=== PATIENT | male | born 1990 | race Caucasian/White ===

== ENCOUNTER 2017-01-15 22:46 | Emergency (ER) | payer SELFPAY ==
[~2017-01-15] VITALS: Ht 171.4 cm; Wt 66.5 kg
[2017-01-15 22:46] VITALS: Ht 171.4 cm; Wt 66.5 kg
[~2017-01-15 22:46] MED LIST: AMOX500C2 PO; HYDR-4246 PO
--- OUTSIDE RECORDS SUMMARY | 2017-01-15 22:50 | XMS REPORT | Continuity of Care Document ---
Author Author [facility] Organization [facility] Address Unknown Phone Unavailable Support Name Relationship Address Phone JONATHON CRYSTAL MD Caregiver [facility] [address] [place] [address] Unavailable MATTIE CARIAS MD Caregiver [address] [place] [address] MAGUE PRIETO Next Of Kin [address] [place] [address] Insurance Providers Payer Name Policy Number Subscriber Name Relationship Self Pay Wili Prieto 20 Self Advance Directives Directive Response Recorded Date/Time Advanced Directives Type None 05/25/14 10:10pm Problems Medical Problems Problem Onset Date Status LEFT GREAT TOE NAIL AVULSION Unknown Active Puncture wound of foot, left Unknown Active Puncture wound of foot, left Unknown Active Dental infection Unknown Active Dental abscess Unknown Active Dental abscess Unknown Active Medications Medication Dose Route Sig Days/Qty Instructions Order Date Discontinued Date Status [None] 08/15/09 04/08/11 Discontinued Miscellaneous Information 05/07/14 Active Amoxicillin 500 Mg PO THREE TIMES A DAY 10 Days 05/25/14 Active Hydrocodone/Acetaminophen 1-2 Tab PO Every 6 Hours PRN PAIN 20 Qty 05/01 Active Social History Social History Problem Response Recorded Date/Time Smoking Status Current every day smoker 05/25/2014 10:15pm When did patient START smoking? AROUND AGE 16 05/25/2014 10:15pm Hx Substance Use No 05/25/2014 10:15pm Hx Alcohol Use No 05/25/2014 10:15pm Hospital Discharge Instructions No hospital discharge instructions. Plan of Care No plan of care. Functional Status Query Response Date Recorded Physical Hygiene Self May 25, 2014 10:15pm Disabilities None May 25, 2014 10:15pm Devices Used None May 25, 2014 10:15pm Dressing Self May 25, 2014 10:15pm Ambulation Self May 25, 2014 10:15pm Diet Self May 25, 2014 10:15pm Mental Status Alert May 25, 2014 10:41pm Disabilities None May 25, 2014 10:15pm Devices Used None May 25, 2014 10:15pm Physical Hygiene Self May 25, 2014 10:15pm Dressing Self May 25, 2014 10:15pm Ambulation Self May 25, 2014 10:15pm Diet Self May 25, 2014 10:15pm Allergies, Adverse Reactions, Alerts Allergen Type Severity Reaction Status Last Updated No Known Allergies Active 05/26/14 Immunizations Name Given Type Hx Influenza Vaccination No Historical Hx Pneumococcal Vaccination No Historical Hx Tetanus, Diptheria, Pertussis Y 05/07/14 Historical Hx Influenza Vaccination No Historical Hx Tetanus Diptheria N UNKNOWN Historical Hx Tetanus, Diptheria, Pertussis Y 05/07/14 Historical Hx Tetanus Toxoid Vaccination No Historical Vital Signs Acute Vital Signs Vital Response Date/Time Temperature (Fahrenheit) 97.6 deg F (96.8 - 99.1) Temperature (Calculated Celsius) 36.26240 degrees C (36.0 - 37.3) Pulse Rate (adult) 63 bpm (60 - 100) Respiratory Rate 18 breaths/min (10 - 20) O2 Sat by Pulse Oximetry 99 % (90 - 100) Blood Pressure 121/61 mm Hg Height 5 ft 8 in Weight 136 lb Body Mass Index 20.0 kg/m^2 Results Test Source Date Result Interp. Ref. Range Comments Alanine Aminotransferase (ALT/SGPT) September 17, 2011 2:10pm 23 U/L N 21 -72 Albumin September 17, 2011 2:10pm 5.2 G/DL H 3.5-5.0 Albumin/Globulin Ratio September 17, 2011 2:10pm 1.6 RATIO N 1.1-2.2 Alkaline Phosphatase September 17, 2011 2:10pm 67 U/L N 38-126 Anion Gap September 17, 2011 2:10pm 14 MEQ/L N 5-15 Aspartate Amino Transf (AST/SGOT) September 17, 2011 2:10pm 20 U/L N 17- 59 BUN/Creatinine Ratio September 17, 2011 2:10pm 20 RATIO N 6-26 Basophils # (Auto) September 17, 2011 2:10pm 0.1 T/MM3 N 0-0.2 Basophils (%) (Auto) September 17, 2011 2:10pm 1.4 % N 0-2 Blood Urea Nitrogen September 17, 2011 2:10pm 18.0 MG/DL N 9-20 Calcium Level September 17, 2011 2:10pm 10.2 MG/DL N 8.4-10.2 Calculated Osmolality September 17, 2011 2:10pm 280 MOSM/KG N 261-280 Carbon Dioxide Level September 17, 2011 2:10pm 29 MEQ/L N 22-30 Chloride Level September 17, 2011 2:10pm 102 MEQ/L N 98-107 Creatinine September 17, 2011 2:10pm 0.9 MG/DL N 0.8-1.5 Eosinophils # (Auto) September 17, 2011 2:10pm 0.2 T/MM3 N 0-0.5 Eosinophils (%) (Auto) September 17, 2011 2:10pm 1.8 % N 0-4 Globulin September 17, 2011 2:10pm 3.2 G/DL N 2.4-3.6 Glucose Level September 17, 2011 2:10pm 78 MG/DL N 75-110 Hematocrit September 17, 2011 2:10pm 44.9 % N 41-53 Hemoglobin September 17, 2011 2:10pm 15.5 GM/DL N 13.5-17.5 Lymphocytes # (Auto) September 17, 2011 2:10pm 2.9 T/MM3 N 1-4.8 Lymphocytes (%) (Auto) September 17, 2011 2:10pm 34.2 % N 23-45 Mean Corpuscular Hemoglobin September 17, 2011 2:10pm 30.5 UUG N 26-34 Mean Corpuscular Hemoglobin Concent September 17, 2011 2:10pm 34.5 GM/DL N 31-37 Mean Corpuscular Volume September 17, 2011 2:10pm 88.4 UM3 N 80-100 Mean Platelet Volume September 17, 2011 2:10pm 11.8 UM3 N 9.4-12.4 Monocytes # (Auto) September 17, 2011 2:10pm 0.5 T/MM3 N 0-0.8 Monocytes (%) (Auto) September 17, 2011 2:10pm 6.4 % N 0-9.0 Neutrophils # (Auto) September 17, 2011 2:10pm 4.7 T/MM3 N 1.8-7.7 Neutrophils (%) (Auto) September 17, 2011 2:10pm 56.1 % N 33-66 Platelet Count September 17, 2011 2:10pm 229 T/MM3 N 130-400 Potassium Level September 17, 2011 2:10pm 4.4 MEQ/L N 3.6-5 RDW Standard Deviation September 17, 2011 2:10pm 40.0 FL N 36.9-50.2 Red Blood Count September 17, 2011 2:10pm 5.08 M/MM3 N 4.50-5.90 Sodium Level September 17, 2011 2:10pm 145 MEQ/L H 134-144 Thyroid Stimulating Hormone (TSH) September 17, 2011 2:10pm 3.87 MIU/L N 0.47-4.68 Total Bilirubin September 17, 2011 2:10pm 0.90 MG/DL N 0.20-1.30 Total Protein September 17, 2011 2:10pm 8.4 G/DL H 6.3-8.2 Urine Amphetamines Screen March 20, 2011 10:45pm Negative NG/ML - Urine Barbiturates Screen March 20, 2011 10:45pm Negative NG/ML - Urine Benzodiazepines Screen March 20, 2011 10:45pm Negative NG/ML - Urine Cocaine Screen March 20, 2011 10:45pm Negative NG/ML - Urine Drug Screen Confirmation March 20, 2011 11:19pm Sent out - Urine Drug Screen Other September 05, 2013 8:51pm Sent out - Urine Methamphetamines Screen March 20, 2011 10:45pm Negative NG/ML - Urine Opiates Screen March 20, 2011 10:45pm Negative NG/ML - Urine Phencyclidine Screen March 20, 2011 10:45pm Negative NG/ML - Urine Tricyclic Antidepressants March 20, 2011 10:45pm Negative NG/ML - White Blood Count September 17, 2011 2:10pm 8.4 T/MM3 N 4.5-11.0 Lab Scanned Report September 07, 2013 10:55am [facility] [id number] - Urine Methadone Screen March 20, 2011 10:45pm Negative NG/ML - Urine Cannabinoids Screen March 20, 2011 10:45pm Positive NG/ML - Glomerular Filtration Rate Calc September 17, 2011 2:10pm 109 - Immature Granulocyte # (Auto) September 17, 2011 2:10pm 0.01 T/MM3 N 0.00 -0.03 Immature Granulocyte % (Auto) September 17, 2011 2:10pm 0.1 % N 0.0-0.5 Urine Acetaminophen Screen March 20, 2011 10:45pm Positive NG/ML - Procedures Procedure Status Date Provider(s) IMMUNIZATION ADMIN completed 05/07/14 Encounters Encounter Location Date/Time Departed Emergency Room [facility] 05/25/14 9:49pm Departed Emergency Room [facility] 05/25/14 2:26am Departed Emergency Room [facility] 05/07/14 5:35pm Recent Diagnosis
--- OUTSIDE RECORDS SUMMARY | 2017-01-15 22:50 | XMS REPORT | Continuity of Care Document ---
Author Author [facility] Organization [facility] Address Unknown Phone Unavailable Support Name Relationship Address Phone JONATHON CRYSTAL MD Caregiver [address] [place] [address] Unavailable ELVIN DICK Next Of Kin [address] [place] [address] Insurance Providers Guarantor Nando Dick Address [address] [place] [address] Email [email or web address] Payer Self Pay Subscriber's Name Nando Dick Relationship 20 Self Chief Complaint and Reason for Visit Chief Complaint Toothache Reason for Visit [id number] Problems Active Problems Medical Problem Onset Date Status Dental abscess Unknown Acute Dental abscess Unknown Acute Dental abscess Unknown Acute Dental infection Unknown Acute Dental infection Unknown Acute Dental infection Unknown Acute LEFT GREAT TOE NAIL AVULSION Unknown Acute Lymphadenopathy of left cervical region Unknown Acute Pain due to dental caries Unknown Acute Puncture wound of foot, left Unknown Acute Puncture wound of foot, left Unknown Acute Tooth fracture Unknown Acute Tooth fracture Unknown Acute Past Problems Medical Problem Onset Date Dental decay Unknown Medications Current Home Medications Medication Dose Units Route Directions Days Qty Instructions Start Date Amoxicillin 500 Mg Capsule 1 Cap Oral Every 8 Hours 30 Capsule Amoxicillin 500 Mg Capsule 1 Cap Oral Three Times A Day 30 Capsule 09/21/16 Hydrocodone/Acetaminophen ([place] 5-325 Tablet) 1 Each Tablet 1-2 Tab Oral Every 6 Hours as needed for Pain 20 Tablet 05/25/14 Hydrocodone/Acetaminophen ([place] 5-325 Tablet) 5-325 Tablet 1 Tab Oral Four Times Daily as needed for Pain 20 09/21/16 Past Home Medications Medication Directions Ordered Status None , 08/15/09 Discontinued Social History Social History Problem Response Recorded Date/Time Onset Date Status Hx Substance Use No 09/21/2016 12:20am Not Applicable Not Applicable Hx Alcohol Use Y RARE 09/21/2016 12:20am Not Applicable Not Applicable Tobacco Usage smoke 05/07/2014 5:58pm Not Applicable Not Applicable Query Response Start Date Stop Date Smoking Status Current every day smoker Hospital Discharge Instructions No hospital discharge instructions. Plan of Care Discharge Date 09/21/16 1:27am Disposition 01 DISCHARGED HOME, SELF-CARE Condition at Discharge Improved Instructions/Education Provided Tooth Decay DI for Dental Pain Forms Provided Return to Work/School Permit Prescriptions See Medication Section Additional Instructions/Education Amoxicillin 500 mg 3 times daily for 10 days Continue ibuprofen 600 mg 4 times daily for baseline pain control [place] 5 mg one tablet 4 times daily as needed for severe pain Search out a dentist in [place] and establish care and ongoing dental care and assistance with anxiety due to procedures Care Plan and Goals Physician Care Plan Problem: Severe dental decay with dental infection Goal: Follow up with primary care provider Instructions: Take medications and follow care plan as discussed/written Amoxicillin 500 mg 3 times daily for 10 days Continue ibuprofen 600 mg 4 times daily for baseline pain control [place] 5 mg one tablet 4 times daily as needed for severe pain Search out a dentist in [place] and establish care and ongoing dental care and assistance with anxiety due to procedures Functional Status No functional status results. Allergies, Adverse Reactions, Alerts No known allergies. Immunizations Query Response on File Recorded Date/Time Hx Influenza Vaccination No 07/11/14 3:10am Hx Pneumococcal Vaccination No 07/11/14 3:10am Hx Tetanus, Diptheria, Pertussis Y 05/07/14 07/11/14 3:10am Hx Influenza Vaccination No 07/11/14 3:10am Hx Tetanus Diptheria N UNKNOWN 07/11/14 3:10am Hx Tetanus, Diptheria, Pertussis Y 05/07/14 07/11/14 3:10am Hx Tetanus Toxoid Vaccination No 08/15/09 8:47pm Influenza Vaccine Hx NOT YET REC'D 09/21/16 12:20am Vital Signs Acute Vital Signs Vital Response Date/Time Temperature (Fahrenheit) 98.5 deg F (96.8 - 99.1) 09/21/2016 1:27am Temperature (Calculated Celsius) 36.35484 degrees C (36.0 - 37.3) 09/21/2016 1:27am Pulse Rate (adult) 74 bpm (60 - 100) 09/21/2016 1:27am Respiratory Rate 16 breaths/min (10 - 20) 09/21/2016 1:27am O2 Sat by Pulse Oximetry 100 % (90 - 100) 09/21/2016 1:27am Blood Pressure 114/80 mm Hg 09/21/2016 1:27am Height (Feet) 5 feet 09/21/2016 12:13am Height (Inches) 7.00 inches 09/21/2016 12:13am Weight (Kilograms) 66.500 kg 09/21/2016 12:13am Body Mass Index (BMI) 22.0 09/21/2016 12:13am Results No known relevant diagnostic tests, laboratory data and/or discharge summary. Procedures No known history of procedures. Encounters Encounter Location Arrival/Admit Date Discharge/Depart Date Attending Provider Departed Emergency Room [facility] 09/21/16 12:01am 09/21/16 1: 27am JONATHON CRYSTAL MD Recent Diagnosis
--- OUTSIDE RECORDS SUMMARY | 2017-01-15 22:50 | XMS REPORT | Continuity of Care Document ---
Author Author [facility] Organization [facility] Address Unknown Phone Unavailable Support Name Relationship Address Phone JONATHON CRYSTAL MD Caregiver [facility] [address] [place] [address] Unavailable MATTIE CARIAS MD Caregiver [address] [place] [address] MAGUE PRIETO Next Of Kin [address] [place] [address] Insurance Providers Payer Name Policy Number Subscriber Name Relationship Self Pay Wili Prieto 20 Self Advance Directives Directive Response Recorded Date/Time Advanced Directives Type None 05/26/14 8:10pm Problems Medical Problems Problem Onset Date Status LEFT GREAT TOE NAIL AVULSION Unknown Active Puncture wound of foot, left Unknown Active Puncture wound of foot, left Unknown Active Dental infection Unknown Active Dental abscess Unknown Active Dental abscess Unknown Active Lymphadenopathy of left cervical region Unknown Active Dental abscess Unknown Active Dental infection Unknown Active Medications Medication Dose Route Sig Days/Qty Instructions Order Date Discontinued Date Status [None] 08/15/09 04/08/11 Discontinued Miscellaneous Information 05/07/14 Active Amoxicillin 500 Mg PO THREE TIMES A DAY 10 Days 05/25/14 Active Hydrocodone/Acetaminophen 1-2 Tab PO Every 6 Hours PRN PAIN 20 Qty 05/01 Active Social History Social History Problem Response Recorded Date/Time Smoking Status Current every day smoker 05/26/2014 8:34pm When did patient START smoking? 16 YRS OLD 05/26/2014 8:34pm Hx Substance Use No 05/26/2014 8:34pm Hx Alcohol Use No 05/26/2014 8:34pm Hospital Discharge Instructions No hospital discharge instructions. Plan of Care No plan of care. Functional Status Query Response Date Recorded Physical Hygiene Self May 26, 2014 8:34pm Disabilities None May 26, 2014 8:34pm Devices Used None May 26, 2014 8:34pm Dressing Self May 26, 2014 8:34pm Ambulation Self May 26, 2014 8:34pm Diet Self May 26, 2014 8:34pm Mental Status Alert Oriented May 26, 2014 8:34pm Disabilities None May 26, 2014 8:34pm Devices Used None May 26, 2014 8:34pm Physical Hygiene Self May 26, 2014 8:34pm Dressing Self May 26, 2014 8:34pm Ambulation Self May 26, 2014 8:34pm Diet Self May 26, 2014 8:34pm Allergies, Adverse Reactions, Alerts Allergen Type Severity [...] Vital Signs Vital Response Date/Time Temperature (Fahrenheit) 98.4 deg F (96.8 - 99.1) Temperature (Calculated Celsius) 36.99484 degrees C (36.0 - 37.3) Pulse Rate (adult) 86 bpm (60 - 100) Respiratory Rate 20 breaths/min (10 - 20) O2 Sat by Pulse Oximetry 99 % (90 - 100) Blood Pressure 132/69 mm Hg Height 5 ft 8 in Weight 135 lb Body Mass Index 20.0 kg/m^2 Results [...] Report September 07, 2013 10:55am [facility] [id number] - Urine Methadone Screen March 20, 2011 [...] Encounters Encounter Location Date/Time Departed Emergency Room [facility] 05/26/14 8:01pm Departed Emergency Room [facility] 05/25/14 9:49pm Departed Emergency Room [facility] 05/25/14 2:26am Departed Emergency Room [facility] 05/07/14 5:35pm Recent Diagnosis
--- OUTSIDE RECORDS SUMMARY | 2017-01-15 22:50 | XMS REPORT | Continuity of Care Document ---
Author Author [facility] Organization [facility] Address Unknown Phone Unavailable Support Name Relationship Address Phone MATTIE CARIAS MD Caregiver [address] [place] [address] ALYCIA POWERS MD Caregiver [address] [place] [address] [address] [place] [id number] MAGUE PRIETO Next Of Kin [address] [place] [address] Insurance Providers Payer Name Policy Number Subscriber Name Relationship Self Pay Nando Prieto 20 Self Advance Directives Directive Response Recorded Date/Time Advanced Directives Type None 05/25/14 2:33am Problems Medical Problems Problem Onset Date Status LEFT GREAT TOE NAIL AVULSION Unknown Active Puncture wound of foot, left Unknown Active Puncture wound of foot, left Unknown Active Dental infection Unknown Active Medications Medication Dose Route Sig Days/Qty Instructions Order Date Discontinued Date Status [None] 08/15/09 04/08/11 Discontinued Miscellaneous Information 05/07/14 Active Ciprofloxacin Hcl 500 Mg PO TWICE A DAY For puncture wound foot 14 Days 05/07/14 Active Amoxicillin 500 Mg PO THREE TIMES A DAY 10 Days 05/25/14 Active Hydrocodone/Acetaminophen 1-2 Tab PO Every 6 Hours PRN PAIN 20 Qty 05/01 Active Social History Social History Problem Response Recorded Date/Time Smoking Status Current every day smoker 05/25/2014 2:43am When did patient START smoking? started at approx. age 16 05/25/2014 2:43am Chewing Tobacco Status No 05/25/2014 2:43am Hx Substance Use No 05/25/2014 2:43am Hx Alcohol Use No 05/25/2014 2:43am Hospital Discharge Instructions No hospital discharge instructions. Plan of Care No plan of care. Functional Status Query Response Date Recorded Physical Hygiene Self May 25, 2014 2:43am Disabilities None May 25, 2014 2:43am Devices Used None May 25, 2014 2:43am Dressing Self May 25, 2014 2:43am Ambulation Self May 25, 2014 2:43am Diet Self May 25, 2014 2:43am Mental Status Alert May 25, 2014 2:47am Disabilities None May 25, 2014 2:43am Devices Used None May 25, 2014 2:43am Physical Hygiene Self May 25, 2014 2:43am Dressing Self May 25, 2014 2:43am Ambulation Self May 25, 2014 2:43am Diet Self May 25, 2014 2:43am Allergies, Adverse Reactions, Alerts Allergen Type Severity Reaction Status Last Updated No Known Allergies Active 05/25/14 Immunizations Name Given Type Hx Influenza Vaccination No Historical Hx Pneumococcal Vaccination No Historical Hx Tetanus, Diptheria, Pertussis Y 05/07/14 Historical Hx Influenza Vaccination No Historical Hx Tetanus Diptheria N UNKNOWN Historical Hx Tetanus, Diptheria, Pertussis Y 05/07/14 Historical Hx Tetanus Toxoid Vaccination No Historical Vital Signs Acute Vital Signs Vital Response Date/Time Temperature (Fahrenheit) 97.2 deg F (96.8 - 99.1) Temperature (Calculated Celsius) 36.41707 degrees C (36.0 - 37.3) Pulse Rate (adult) 63 bpm (60 - 100) Respiratory Rate 16 breaths/min (10 - 20) O2 Sat by Pulse Oximetry 100 % (90 - 100) Blood Pressure 135/79 mm Hg Height 5 ft 8 in [...] Report September 07, 2013 10:55am [facility] [id number] - Urine Methadone Screen March 20, 2011 [...] ADMIN completed 05/07/14 Encounters Encounter Location Date/Time Registered Emergency Room [facility] 05/25/14 2:26am Departed Emergency Room [facility] 05/07/14 5:35pm Recent Diagnosis
--- OUTSIDE RECORDS SUMMARY | 2017-01-15 22:50 | XMS REPORT | Continuity of Care Document ---
Author Author [facility] Organization [facility] Address Unknown Phone Unavailable Support Name Relationship Address Phone SILVIODAPHNE Caregiver [facility] [address] [place], [place] [id number] RICHARD ARZATE MD Caregiver Unknown Unavailable MATTIE CARIAS MD Caregiver [address] [place], [place] [id number] MAGUE PRIETO Next Of Kin [address] [place] [id number] Insurance Providers Payer Name Policy Number Subscriber Name Relationship Self Pay Nando Prieto 20 Self Problems Medical Problems Problem Onset Date Status LEFT GREAT TOE NAIL AVULSION Unknown Active Puncture wound of foot, left Unknown Active Puncture wound of foot, left Unknown Active Medications Medication Dose Route Sig Days/Qty Instructions Order Date Discontinued Date Status [None] 08/15/09 04/08/11 Discontinued Miscellaneous Information 05/07/14 Active Ciprofloxacin Hcl 500 Mg PO TWICE A DAY For puncture wound foot 14 Days 05/07/14 Active Social History Social History Problem Response Recorded Date/Time Smoking Status Current every day smoker 05/07/2014 5:41pm Chewing Tobacco Status No 05/07/2014 5:41pm Hx Substance Use No 05/07/2014 5:41pm Hospital Discharge Instructions No hospital discharge instructions. Plan of Care No plan of care. Functional Status Query Response Date Recorded Physical Hygiene Self May 07, 2014 5:41pm Disabilities None May 07, 2014 5:41pm Devices Used None May 07, 2014 5:41pm Dressing Self May 07, 2014 5:41pm Ambulation Self May 07, 2014 5:41pm Diet Self May 07, 2014 5:41pm Mental Status Alert Oriented May 07, 2014 5:41pm Disabilities None May 07, 2014 5:41pm Devices Used None May 07, 2014 5:41pm Physical Hygiene Self May 07, 2014 5:41pm Dressing Self May 07, 2014 5:41pm Ambulation Self May 07, 2014 5:41pm Diet Self May 07, 2014 5:41pm Allergies, Adverse Reactions, Alerts Allergen Type Severity Reaction Status Last Updated No Known Allergies Active 05/07/14 Immunizations Name Given Type Hx Tetanus, Diptheria, Pertussis Y 05/07/14 Historical Hx Tetanus Diptheria N UNKNOWN Historical Hx Tetanus, Diptheria, Pertussis Y 05/07/14 Historical Hx Tetanus Toxoid Vaccination No Historical Tdap 05/07/14 Administered Vital Signs Acute Vital Signs Vital Response Date/Time Temperature (Fahrenheit) 98.5 deg F (96.8 - 99.1) Temperature (Calculated Celsius) 36.64261 degrees C (36.0 - 37.3) Pulse Rate (adult) 84 bpm (60 - 100) Respiratory Rate 18 breaths/min (10 - 20) O2 Sat by Pulse Oximetry 99 % (90 - 100) Blood Pressure 131/69 mm Hg Height 5 ft 9 in Weight 137 lb Body Mass Index 20.0 kg/m^2 Results [...] Report September 07, 2013 10:55am [facility] [id number] - Urine Methadone Screen March 20, 2011 [...] 20, 2011 10:45pm Positive NG/ML - Procedures No known history of procedures. Encounters Encounter Location Date/Time Departed Emergency Room [facility] 05/07/14 5:35pm Recent Diagnosis
--- OUTSIDE RECORDS SUMMARY | 2017-01-15 22:50 | XMS REPORT | Continuity of Care Document ---
Author Author [facility] Organization [facility] Address Unknown Phone Unavailable Support Name Relationship Address Phone HEIDY LARSEN MD Caregiver [address] [place] [address] [address] [place] [address] MATTIE CARIAS MD Caregiver [address] [place] [address] MAGUE PRIETO Next Of Kin [address] [place] [phone] Insurance Providers Payer Name Policy Number Subscriber [...] abscess Unknown Active Dental infection Unknown Active Tooth fracture Unknown Active Dental infection Unknown Active Medications Medication Dose Route Sig Days/Qty Instructions Order Date Discontinued Date Status [None] 08/15/09 04/08/11 Discontinued Miscellaneous Information 05/07/14 Active Amoxicillin 500 Mg PO THREE TIMES A DAY 10 Days 05/25/14 Active Hydrocodone/Acetaminophen 1-2 Tab PO Every 6 Hours PRN PAIN 20 Qty 05/01 Active Hydrocodone/Acetaminophen 1-2 Tab PO Q6H/0300,0900,1500,2100 PRN dental pain 20 Qty 05/29/14 Active Social History Social History Problem Response Recorded Date/Time Smoking Status Current every day smoker 05/29/2014 11:08am Hx Substance Use No 05/29/2014 11:08am Hx Alcohol Use No 05/29/2014 11:08am Hospital Discharge Instructions No hospital discharge instructions. Plan of Care No plan of care. Functional Status Query Response Date Recorded Physical Hygiene Self May 29, 2014 11:08am Disabilities None May 29, 2014 11:08am Devices Used None May 29, 2014 11:08am Dressing Self May 29, 2014 11:08am Ambulation Self May 29, 2014 11:08am Diet Self May 29, 2014 11:08am Mental Status Alert May 29, 2014 11:38am Disabilities None May 29, 2014 11:08am Devices Used None May 29, 2014 11:08am Physical Hygiene Self May 29, 2014 11:08am Dressing Self May 29, 2014 11:08am Ambulation Self May 29, 2014 11:08am Diet Self May 29, 2014 11:08am Allergies, Adverse Reactions, Alerts Allergen Type Severity [...] Vital Signs Vital Response Date/Time Temperature (Fahrenheit) 97.4 deg F (96.8 - 99.1) Temperature (Calculated Celsius) 36.22164 degrees C (36.0 - 37.3) Pulse Rate (adult) 72 bpm (60 - 100) Respiratory Rate 22 breaths/min (10 - 20) O2 Sat by Pulse Oximetry 99 % (90 - 100) Blood Pressure 122/73 mm Hg Height 5 ft 9 in Weight 122 lb Body Mass Index 18.0 kg/m^2 Results Test Source Date Result Interp. [...] Report September 07, 2013 10:55am [facility] [id number] - Urine Methadone Screen March 20, 2011 [...] Encounters Encounter Location Date/Time Departed Emergency Room [facility] 05/29/14 11:01am Departed Emergency Room [facility] 05/26/14 8:01pm Departed Emergency Room [facility] 05/25/14 9:49pm Departed Emergency Room [facility] 05/25/14 2:26am Departed Emergency Room [facility] 05/07/14 5:35pm Recent Diagnosis
--- OUTSIDE RECORDS SUMMARY | 2017-01-15 22:51 | XMS REPORT | Continuity of Care Document ---
Author Author [facility] Organization [facility] Address Unknown Phone Unavailable Support Name Relationship Address Phone JONATHON CRYSTAL MD Caregiver [address] [place] [address] Unavailable MAGUE DICK Next Of Kin [address] [place] [address] Insurance Providers Payer Name Policy Number Subscriber Name Relationship Self Pay Nando Dick 20 Self Problems Medical Problems Problem Onset [...] fracture Unknown Active Dental infection Unknown Active Tooth fracture Unknown Active Pain due to dental caries Unknown Active Medications Medication Dose Route Sig Days/Qty Instructions Order Date Discontinued Date Status [None] 08/15/09 04/08/11 Discontinued Hydrocodone/Acetaminophen 1-2 Tab PO Every 6 Hours PRN PAIN 20 Qty 05/01 Active Amoxicillin 1 Cap PO Every 8 Hours 30 Qty 07/11/14 Active Social History Social History Problem Response Recorded Date/Time Smoking Status Current every day smoker 07/11/2014 3:10am Chewing Tobacco Status No 07/11/2014 3:10am Hx Substance Use No 07/11/2014 3:10am Hx Alcohol Use Y RARE 07/11/2014 3:10am Hospital Discharge Instructions No hospital discharge instructions. Plan of Care No plan of care. Functional Status Query Response Date Recorded Physical Hygiene Self July 11, 2014 3:10am Disabilities None July 11, 2014 3:10am Devices Used None July 11, 2014 3:10am Dressing Self July 11, 2014 3:10am Ambulation Self July 11, 2014 3:10am Diet Self July 11, 2014 3:10am Mental Status Alert Oriented July 11, 2014 3:10am Disabilities None July 11, 2014 3:10am Devices Used None July 11, 2014 3:10am Physical Hygiene Self July 11, 2014 3:10am Dressing Self July 11, 2014 3:10am Ambulation Self July 11, 2014 3:10am Diet Self July 11, 2014 3:10am Allergies, Adverse Reactions, Alerts Allergen Type Severity Reaction Status Last Updated No Known Allergies Active 07/11/14 Immunizations Name Given Type Hx Influenza Vaccination [...] F (96.8 - 99.1) Temperature (Calculated Celsius) 36.78522 degrees C (36.0 - 37.3) Pulse Rate (adult) 83 bpm (60 - 100) Respiratory Rate 16 breaths/min (10 - 20) O2 Sat by Pulse Oximetry 100 % (90 - 100) Blood Pressure 133/75 mm Hg Blood Pressure 133/75 mm Hg Height (Feet) 5 feet Height (Inches) 9.00 inches Weight (Kilograms) 60.8 kg Body Mass Index (BMI) 19.0 Results Test Source Date Result Interp. Ref. [...] Report September 07, 2013 10:55am [facility] [id number] - Urine Methadone Screen March 20, 2011 [...] Encounters Encounter Location Date/Time Departed Emergency Room [facility] 07/11/14 2:57am Departed Emergency Room [facility] 05/29/14 11:01am Departed Emergency Room [facility] 05/26/14 8:01pm Departed Emergency Room [facility] 05/25/14 9:49pm Departed Emergency Room [facility] 05/25/14 2:26am Departed Emergency Room [facility] 05/07/14 5:35pm Recent Diagnosis
--- OUTSIDE RECORDS SUMMARY | 2017-01-15 23:00 | XMS REPORT | Continuity of Care Document ---
Author Author [facility] Organization [facility] Address Unknown Phone Unavailable Support Name Relationship Address Phone JONATHON CRYSTAL MD Caregiver [facility] [address] [place] [address] Unavailable MATTIE CARISA MD Caregiver [address] [place] [address] MAGUE PRIETO Next Of Kin [address] [place] [address] Insurance Providers Payer Name Policy Number Subscriber [...] F (96.8 - 99.1) Temperature (Calculated Celsius) 36.00290 degrees C (36.0 - 37.3) Pulse Rate [...] Report September 07, 2013 10:55am [facility] [id number] - Urine Methadone Screen March 20, 2011 [...] Encounters Encounter Location Date/Time Departed Emergency Room [facility] 05/25/14 9:49pm Departed Emergency Room [facility] 05/25/14 2:26am Departed Emergency Room [facility] 05/07/14 5:35pm Recent Diagnosis
--- OUTSIDE RECORDS SUMMARY | 2017-01-15 23:00 | XMS REPORT | Continuity of Care Document ---
Author Author [facility] Organization [facility] Address Unknown Phone Unavailable Support Name Relationship Address Phone HEIDY LARSEN MD Caregiver [address] [place] [address] [address] [place] [address] MATTIE CARIAS MD Caregiver [address] [place] [address] MAGUE PRIETO Next Of Kin [address] [place] [phone] Insurance Providers Payer Name Policy Number Subscriber [...] F (96.8 - 99.1) Temperature (Calculated Celsius) 36.11314 degrees C (36.0 - 37.3) Pulse Rate [...] Report September 07, 2013 10:55am [facility] [id number] - Urine Methadone Screen March 20, 2011 [...] Encounters Encounter Location Date/Time Departed Emergency Room [facility] 05/29/14 11:01am Departed Emergency Room [facility] 05/26/14 8:01pm Departed Emergency Room [facility] 05/25/14 9:49pm Departed Emergency Room [facility] 05/25/14 2:26am Departed Emergency Room [facility] 05/07/14 5:35pm Recent Diagnosis
--- OUTSIDE RECORDS SUMMARY | 2017-01-15 23:00 | XMS REPORT | Continuity of Care Document ---
Author Author [facility] Organization [facility] Address Unknown Phone Unavailable Support Name Relationship Address Phone JONATHON CRYSTAL MD Caregiver [address] [place] [address] Unavailable MAGUE DICK Next Of Kin [address] [place] [address] Insurance Providers Payer Name Policy Number Subscriber [...] F (96.8 - 99.1) Temperature (Calculated Celsius) 36.11487 degrees C (36.0 - 37.3) Pulse Rate [...] Report September 07, 2013 10:55am [facility] [id number] - Urine Methadone Screen March 20, 2011 [...] Encounters Encounter Location Date/Time Departed Emergency Room [facility] 07/11/14 2:57am Departed Emergency Room [facility] 05/29/14 11:01am Departed Emergency Room [facility] 05/26/14 8:01pm Departed Emergency Room [facility] 05/25/14 9:49pm Departed Emergency Room [facility] 05/25/14 2:26am Departed Emergency Room [facility] 05/07/14 5:35pm Recent Diagnosis
--- OUTSIDE RECORDS SUMMARY | 2017-01-15 23:00 | XMS REPORT | Continuity of Care Document ---
Author Author [facility] Organization [facility] Address Unknown Phone Unavailable Support Name Relationship Address Phone SILVIODAPHNE Caregiver [facility] [address] [place], [place] [id number] RICHARD ARZATE MD Caregiver Unknown Unavailable MATTIE CARIAS MD Caregiver [address] [place], [place] [phone] MAGUE PRIETO Next Of Kin [address] [place] [phone] Insurance Providers Payer Name Policy Number Subscriber [...] F (96.8 - 99.1) Temperature (Calculated Celsius) 36.05706 degrees C (36.0 - 37.3) Pulse Rate [...] Report September 07, 2013 10:55am [facility] [id number] - Urine Methadone Screen March 20, 2011 [...] Encounters Encounter Location Date/Time Departed Emergency Room [facility] 05/07/14 5:35pm Recent Diagnosis
--- OUTSIDE RECORDS SUMMARY | 2017-01-15 23:00 | XMS REPORT | Continuity of Care Document ---
Author Author [facility] Organization [facility] Address Unknown Phone Unavailable Support Name Relationship Address Phone JONATHON CRYSTAL MD Caregiver [facility] [address] [place] [address] Unavailable MATTIE CARIAS MD Caregiver [address] [place] [address] MAGUE PRIETO Next Of Kin [address] [place] [address] Insurance Providers Payer Name Policy Number Subscriber [...] F (96.8 - 99.1) Temperature (Calculated Celsius) 36.82850 degrees C (36.0 - 37.3) Pulse Rate [...] Report September 07, 2013 10:55am [facility] [id number] - Urine Methadone Screen March 20, 2011 [...] Encounters Encounter Location Date/Time Departed Emergency Room [facility] 05/26/14 8:01pm Departed Emergency Room [facility] 05/25/14 9:49pm Departed Emergency Room [facility] 05/25/14 2:26am Departed Emergency Room [facility] 05/07/14 5:35pm Recent Diagnosis
--- OUTSIDE RECORDS SUMMARY | 2017-01-15 23:00 | XMS REPORT | Continuity of Care Document ---
Author Author [facility] Organization [facility] Address Unknown Phone Unavailable Support Name Relationship Address Phone MATTIE CARIAS MD Caregiver [address] [place] [address] ALYCIA POWERS MD Caregiver [address] [place] [address] [address] [place] [address] MAGUE PRIETO Next Of Kin [address] [place] [address] Insurance Providers Payer Name Policy Number Subscriber [...] F (96.8 - 99.1) Temperature (Calculated Celsius) 36.15800 degrees C (36.0 - 37.3) Pulse Rate [...] Report September 07, 2013 10:55am [facility] [id number] - Urine Methadone Screen March 20, 2011 [...] Encounters Encounter Location Date/Time Registered Emergency Room [facility] 05/25/14 2:26am Departed Emergency Room [facility] 05/07/14 5:35pm Recent Diagnosis
[2017-01-15] MEDS ORDERED: PROPRANOLOL 20 MG TABLET PO ONE (23:15)
[2017-01-15] MEDS ORDERED: NORMAL SALINE 1,000 ML IV ONE (23:15)
[2017-01-15] MEDS ORDERED: AMPICILLIN 1 G in NORMAL SALINE 100 ML IV ONE (23:15)
--- NOTE | 2017-01-15 23:19 | ERPDOC ---
Departure Disposition Decision Date: Jan 15, 2017 Disposition Decision Time: 23:16 Disposition: 01 DISCHARGED HOME, SELF-CARE Impression Impression Impression: Primary Impression: Dental abscess Severity: Moderate Condition: Improved Seen By: Physician only Referrals: [facility] Day Patient Instructions: Dental Abscess (ED) Problems/Meds/Labs Reviewed?: Yes Medications reviewed and manag: Yes Follow up care ordered?: Yes Mental Status: Alert, Oriented Scripts Propranolol HCl (Propranolol HCl) 20 Mg Tablet 20 MG PO Q8HPRN Y for ANXIETY, #40 TAB Take 1 tablet, by mouth, 3 times a day. Prov: FEBRUARY,CARLTON Munroe DO 01/15/17 Amoxicillin/Potassium Clav (Augmentin 875-125 Tablet) 1 Each Tablet 1 TAB PO BID for 14 Days, #28 TAB TAKE WITH MEALS Prov: DO 01/15/17 HPI General Chief Complaint: Toothache Stated Complaint: FACIAL ABCESS Time Seen by Provider: 22:55 Source: patient, family Exam Limitations: no limitations HPI Dental Initial Comments 26yo man presents to the ER tonight with left jaw swelling. Pt has a long h/o poor dentition and recurrent abscesses. Pts biological mother had similar issues. Pt has used marijuana in the past, but denies other substance use. Has a h/o bad anxiety, including panic attacks, but has no treatment. Is having a panic attack on presentation. Occurred At: home Onset: Rapid Duration: 12-24 hrs Pain Scale: Now & Worst: 0/10 Severity: moderate Location: L lower 1 - Fractured and carried teeth. 2 - Swelling Problem: chipped tooth, fractured tooth Associated Symptoms: cheek swelling, fractured tooth, gum swelling, headache, trouble chewing, DENIES: cough, dental trauma, diarrhea, drooling, dyspnea, facial swelling, fever, high pitched cry/voice, hoarseness, impacted tooth, loose tooth, nausea, retained foreign body, rhinorrhea, sinus drainage, sinus pain, trouble swallowing, vomiting Allergies: Coded Allergies: No Known Allergies (Unverified , 09/21/16) Past History Past Medical History ENMT: dental problems Hx Echocardiogram: No Respiratory: asthma (Childhood - no issues since age of 14yo) Neurological: headaches Psychological: drug abuse Surgical History General: tonsils Family History Family PMH: FOUND: other Vaccines Hx Influenza Vaccination: No Hx Pneumococcal Vaccination: No Hx Tetanus Diptheria: No (UNKNOWN) Hx Tetanus, Diptheria, Pertuss: Yes (05/07/14) Social History Does patient use chewing tobac: No # of Packs/Tins per Day: 1 Second Hand Exposure: No Substance Use Type: does not use Alcohol Intake: none Review of Systems ENMT Mouth/Throat: caries, DENIES: bleeding gums, blisters, change in swallowing, change in taste, change in voice, drooling, dry mouth, growths, hoarsness, loose teeth, masses, painful swallowing, scratchy throat, sore throat, sores, ulcers Teeth: chipped/cracked tooth, DENIES: missing teeth, pain All other Systems All Other Systems: Reviewed and Negative Exam General General Nourishment: well nourished, well developed, appears stated age, no acute distress, adult, thin Height (Feet): 5 Height (Inches): 7.00 Fastrak Dental Face: asymmetry, swelling, tender, NOT FOUND: bruising, erythema, numbness, weakness Jaw: asymmetry Glands: NOT FOUND: L parotid swollen, L submandibular swollen, R parotid swollen, R submandibular swollen Ducts: NOT FOUND: L [place]'s blocked, R [place]re's blocked Lips: NOT FOUDN: laceration, numbness, swelling, weakness Gums: moist, pink, swelling, NOT FOUND: exudate, lesion Tongue: NOT FOUND: geographic, swelling Teeth: caries, fractures Pharynx: NOT FOUND: erythema, exudate, swelling Tonsils: NOT FOUND: erythema, exudate Neck: L anterior adenopathy, NOT FOUND: L posterior adenopathy, R anterior adenopathy, R posterior adenopathy Skin: NOT FOUND: rash Neurologic RN Documented GCS Eye Opening: Verbal: Motor: Total: Differential Diagnoses Considering: Gingival Abscess, Caries, Impacted Tooth, Obi's Angina, Pharyngitis Strep, Sinusitis, Tooth Avulsion/Extrusion, Tooth Fracture Progress Results/Orders Orders Medications Current ED Medications Propranolol HCl 20 mg 20 mg O ONCE PO Last administered on 01/15/17 23:34; Start 01/15/17 at 23:15; Stop 01/15/17 at 23:17; Status DC Sodium Chloride 1,000 ml @ 250 mls/hr Q4H ONCE IV Last administered on 23:27; Start 01/15/17 at 23:15; Stop 01/16/17 at 02:03; Status DC Ampicillin Sodium/ Sodium Chloride (Ampicillin/NS) 100 ml @ 200 mls/hr O ONCE IV Last administered on 01/15/17 23:34; Start 01/15/17 at 23:15; Stop at 23:44; Status DC Progress Progress Pt's anxiety treated successfully with propranolol. Offered to treat pts pain with bupivacaine inj - pt opted not to use. Started treatment for abscess with ampicillin. Pt improved following. Discussed dx, prognosis, and treatment - including the fact that pt must be seen by a dentist for definitive care - pt voiced understanding. CARLTON NORTON DO Jan 15, 2017 23:19 Medications Current ED Medications Propranolol HCl 20 mg 20 mg O ONCE PO Last administered on 01/15/17 23:34; Start 01/15/17 at 23:15; Stop 01/15/17 at 23:17; Status DC Sodium Chloride 1,000 ml @ 250 mls/hr Q4H ONCE IV Last administered on 23:27; Start 01/15/17 at 23:15; Stop 01/16/17 at 03:14 Ampicillin Sodium/ Sodium Chloride (Ampicillin/NS) 100 ml @ 200 mls/hr O ONCE IV Last administered on 01/15/17 23:34; Start 01/15/17 at 23:15; Stop at 23:44; Status DC CARLTON NORTON DO Jan 15, 2017 23:19
[2017-01-15] MEDS ORDERED: AMOX-351 PO (23:20)
[2017-01-15] MEDS ORDERED: PROP20TA7 PO (23:21)
[2017-01-16 00:30] VITALS: BP 123/86; PULSE 98; RESP 18; TEMP 98.1; O2SAT 97
--- NOTE | 2017-01-16 00:30 | NUR ---
DEPART PT IS GIVEN DISMISSAL INSTRUCTIONS WITH VERBAL UNDERSTANDING. PT IS GIVEN SCRIPTS. PT IS AMBUALTORY TO ED EXIT WITH FAMILY
== END 2017-01-16 00:30 | disposition home or self-care (01) ==
LOC: ED 22:46
DX: K04.7 Periapical abscess without sinus (principal); F41.0 Panic disorder [episodic paroxysmal anxiety]